=== PATIENT | female | born 1990 | race Caucasian/White ===

== ENCOUNTER 2017-01-24 21:13 | Emergency (ER) | payer OTHER ==
[~2017-01-24] VITALS: Ht 160 cm; Wt 99.8 kg
[2017-01-24 22:05] VITALS: BP 122/68
== END 2017-01-24 22:05 | disposition home or self-care (01) ==
LOC: ED 21:13
DX: L03.115 Cellulitis of right lower limb (principal)

== ENCOUNTER 2017-03-31 02:46 | Emergency (ER) | payer OTHER ==
[~2017-03-31] VITALS: Ht 165.1 cm; Wt 100.9 kg
[2017-03-31 03:05] VITALS: Ht 165.1 cm; Wt 100.9 kg
[2017-03-31 05:58] VITALS: BP 120/78
== END 2017-03-31 06:00 | disposition short-term general hospital (02) ==
LOC: ED 02:46
CPT/HCPCS: J1170; Q0162

== ENCOUNTER 2019-02-18 15:23 | Emergency (ER) | payer OTHER ==
[~2019-02-18] VITALS: Ht 157.5 cm; Wt 107.5 kg
[2019-02-18 15:36] VITALS: Ht 157.5 cm; Wt 107.5 kg
[2019-02-18 18:55] VITALS: BP 118/75
== END 2019-02-18 18:55 | disposition home or self-care (01) ==
LOC: ED 15:23
DX: O26.892 Other specified pregnancy related conditions, second trimester (principal); R05 Cough; R51 Headache; R07.89 Other chest pain; Z3A.20 20 weeks gestation of pregnancy

== ENCOUNTER 2020-02-04 07:30 | Emergency (ER) | payer OTHER ==
[~2020-02-04] VITALS: Ht 165.1 cm; Wt 111.6 kg
[2020-02-04 08:10] VITALS: BP 11/42; Ht 165.1 cm; Wt 111.6 kg
== END 2020-02-04 09:13 | disposition left against medical advice (07) ==
LOC: ED 07:30
DX: Z53.21 Procedure and treatment not carried out due to patient leaving prior to being seen by health care provider (principal)